=== PATIENT | male | born 1985 | race Caucasian/White ===

== ENCOUNTER 2017-10-25 09:50 | Day surgery (SDC) | payer OTHER ==
[2017-10-25] MEDS ORDERED: SOD CHLORIDE 0.9% 1,000 ML IV (11:37)
[2017-10-25] MEDS ORDERED: ONDANSETRON 4 MG INJ IV ×2 (12:00→15:30)
[2017-10-25] MEDS ORDERED: OXYCODONE/ACETAMINOPHEN (5/325) TAB PO ×4 (12:00→15:30)
[2017-10-25] MEDS ORDERED: morphine 2 MG INJ IV (12:00)
[2017-10-25] MEDS ORDERED: MIDAZOLAM 1 MG/ML 2 ML INJ ×2 (12:55→12:56)
[2017-10-25] MEDS ORDERED: ROPIVACAINE 0.5 % 30 ML VIAL (12:56)
[2017-10-25] MEDS ORDERED: LIDOCAINE 2% (SDV) 5 ML INJ (14:31)
[2017-10-25] MEDS ORDERED: SUCCINYLCHOLINE CHLORIDE 100 MG/5 ML SYG IV (14:31)
[2017-10-25] MEDS ORDERED: PROPOFOL 20 ML ×2 (14:31→14:39)
[2017-10-25] MEDS ORDERED: ROCURONIUM 50 MG INJ (14:31)
[2017-10-25] MEDS ORDERED: FAMOTIDINE 20 MG INJ (15:12)
[2017-10-25] MEDS ORDERED: ONDANSETRON 4 MG INJ (15:12)
[2017-10-25] MEDS ORDERED: DEXAMETHASONE 4 MG/ML 1 ML INJ (15:12)
[2017-10-25] MEDS ORDERED: CEFAZOLIN 1 GM INJ ×2 (15:15→16:13)
[2017-10-25] MEDS ORDERED: EPHEDrine SULFATE 50 MG/5 ML SYG (15:16)
[2017-10-25] MEDS ORDERED: ACETAMINOPHEN 1000MG/100ML IV 100 ML (15:17)
[2017-10-25] MEDS: POLYMYXIN/BACITRACIN 1L IRRIG (15:18)
[2017-10-25] MEDS ORDERED: HYDROmorphONE (0.2 MG/ML) 10ML SYG IV ×3 (15:30)
[2017-10-25] MEDS ORDERED: DIPHENHYDRAMINE 50 MG INJ IV (15:30)
[2017-10-25] MEDS ORDERED: PROCHLORPERAZINE 10 MG INJ IV (15:30)
[2017-10-25] MEDS ORDERED: MEPERIDINE 25 MG INJ IV (15:30)
[2017-10-25] MEDS ORDERED: FENTAnyl 50 MCG/ML VIAL IV ×3 (15:30)
[2017-10-25] MEDS ORDERED: SUGAMMADEX SODIUM 200 MG/2 ML VIAL IV (15:56)
[2017-10-25] MEDS: POVIDONE IODINE 10% 28.4 GM OINT (16:11)
[2017-10-25] MEDS ORDERED: HYDROmorphONE 2 MG/ML SYG (16:25)
[2017-10-25] MEDS: ROPIVACAINE 0.5 % 30 ML VIAL (16:28)
== END 2017-10-25 18:10 | disposition home or self-care (01) ==
LOC: SDS 09:50
DX: S86.012A Strain of left Achilles tendon, initial encounter (principal); X58.XXXA Exposure to other specified factors, initial encounter
CPT/HCPCS: 27650